=== PATIENT | male | born 2000 | race American Indian/Alaskan Native ===

== ENCOUNTER 2021-07-19 13:48 | Observation (INO) | payer OTHER ==
[2021-07-19] MEDS ORDERED: KETOROLAC 60 MG/2 ML INJ IM ONE (14:23)
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
[2021-07-19 18:33] LABS: Basophils % (Auto) 0.4 % (0.0-1.8); Eosinophils # (Auto) 0.1 K/mm3 (0.0-0.4); Eosinophils % (Auto) 1.2 % (0.0-4.3); Hemoglobin 16.3 gm/dl (11.8-15.2); Lymphocytes % (Auto) 39.2 % (13.4-35.0); Mean Corpuscular HGB Conc 35 % (32-34); Mean Corpuscular Volume 87 fl (84-94); Monocytes # (Auto) 0.5 K/mm3 (0.0-0.8); Monocytes % (Auto) 9.8 % (0.0-7.3); Platelet Count 214 K/mm3 (140-440); Red Cell Distribution Width 13.1 % (13.2-15.2)
[2021-07-19] MEDS ORDERED: ONDANSETRON 4 MG/2 ML INJ IV PRN ×2 (18:36→22:21)
[2021-07-19] MEDS ORDERED: MORPHINE 2 MG/1 ML INJ IV PRN (18:36)
[2021-07-19] MEDS ORDERED: ACETAMINOPHEN 325 MG TAB PO PRN (18:36)
[2021-07-19 18:37] LABS: BUN/Creatinine Ratio 13; Blood Urea Nitrogen 14 mg/dL (9-20); Calcium 9.9 mg/dL (8.4-10.2); Hemolysis Index 28
[2021-07-19] MEDS ORDERED: HYDROmorphone 0.5 MG/0.5 ML INJ IV PRN (22:21)
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
[2021-07-20] MEDS: ACETAMINOPHEN 325 MG TAB PO PRN ×2 (09:50→13:50)
[2021-07-20] MEDS: FAMOTIDINE 20 MG TAB PO SCH ×2 (09:51→21:16)
[2021-07-20] MEDS ORDERED: KETOROLAC 30 MG/1 ML INJ IV PRN (13:46)
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
[2021-07-21] MEDS: FAMOTIDINE 20 MG TAB PO SCH (09:15)
[2021-07-21] MEDS: ACETAMINOPHEN 325 MG TAB PO PRN (09:17)
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
[2021-07-21 12:56] VITALS: BP 121/61
== END 2021-07-21 15:30 | disposition home or self-care (01) ==
LOC: ED 13:48 → 3A 18:36
PROVIDERS: ADMIT Internal Medicine; ATTEND Internal Medicine
DX: S29.012A Strain of muscle and tendon of back wall of thorax, initial encounter (principal); M54.2 Cervicalgia; V87.7XXA Person injured in collision between other specified motor vehicles (traffic), initial encounter; Y92.89 Other specified places as the place of occurrence of the external cause; Y93.89 Activity, other specified; Y99.8 Other external cause status
CPT/HCPCS: 36415; 72072; 72125; 72141; 80048; 85025; 96372; 96374; 99285; G0378; J1885